=== PATIENT | female | born 1940 | race Caucasian/White ===

== ENCOUNTER 2016-09-13 13:35 | Outpatient (CLI) | payer MEDICARE, OTHER | END 2016-09-13 13:36 | disposition home or self-care (01) | DX: M85.88 Other specified disorders of bone density and structure, other site (principal); Z78.0 Asymptomatic menopausal state ==

== ENCOUNTER 2016-09-13 13:35 | Outpatient (CLI) | payer MEDICARE, OTHER | END 2016-09-13 13:36 | disposition home or self-care (01) | DX: Z12.31 Encounter for screening mammogram for malignant neoplasm of breast (principal); Z85.3 Personal history of malignant neoplasm of breast ==

== ENCOUNTER 2016-09-24 16:46 | Outpatient (CLI) | payer MEDICARE, OTHER | END 2016-09-24 16:47 | disposition home or self-care (01) | DX: K80.20 Calculus of gallbladder without cholecystitis without obstruction (principal); K31.4 Gastric diverticulum ==

== ENCOUNTER 2017-09-14 11:14 | Outpatient (CLI) | payer MEDICARE, OTHER ==
--- NOTE | 2017-09-15 18:13 | Mammography Report ---
DIGITAL SCREENING MAMMOGRAM: 09/14/2017 CLINICAL INDICATION: A 77-year-old with family history of breast cancer, history of benign biopsies for screening. COMPARISON: 09/2016, 09/2015, 07/2014, 07/2013, 06/2012, 04/2011, 04/2010. TECHNIQUE: Routine CC and MLO projections were obtained of the breasts. FINDINGS: The breasts again demonstrate heterogeneously dense fibroglandular parenchyma bilaterally. Post-biopsy changes are stable. Coarse and punctate, typically benign calcifications are present. No suspicious masses, clustered microcalcifications, or regions of architectural distortion are identified. IMPRESSION: BENIGN FINDINGS. RECOMMENDATION: Routine annual screening unless otherwise clinically indicated. BIRADS category: 2, benign findings. STANDARD QUALIFYING STATEMENTS 1. This examination was reviewed with the aid of Computed-Aided Detection (CAD). 2. A negative or benign imaging report should not delay biopsy if clinically suspicious findings are present. Consider surgical consultation if warranted. More than 5% of cancers are not identified by imaging. 3. Dense breasts may obscure an underlying neoplasm. TD: 09/15/2017 18:12
== END 2017-09-14 11:15 | disposition home or self-care (01) ==
LOC: DI 11:14
PROVIDERS: ATTEND Physician Assistant
DX: Z12.31 Encounter for screening mammogram for malignant neoplasm of breast (principal); Z80.3 Family history of malignant neoplasm of breast
CPT/HCPCS: 77067

== ENCOUNTER 2018-09-22 13:13 | Outpatient (CLI) | payer MEDICARE, OTHER ==
--- NOTE | 2018-09-25 09:24 | Mammography Report ---
Reason: ENCOUNTER FOR SCREENING MAMMOGRAM FOR MALIGNANT NE Procedure Date: 09/22/2018 Accession Number: [id number] / [id number] Procedure: MELISSA - Screening Mammo w/Viktor CPT Code: FULL RESULT: EXAM: Screening Mammo w/Viktor DATE: 09/22/2018 2:39 PM CLINICAL HISTORY: Screening encounter. Family history of breast cancer in the mother around the age of 55. History of benign breast biopsies. TECHNIQUE: Bilateral CC and MLO views were obtained. A left laterally exaggerated CC view was obtained. COMPARISON: 09/14/2017 through 07/30/2014. FINDINGS: The breasts demonstrate heterogeneously dense fibroglandular parenchyma bilaterally. There are coarse typically benign calcifications. Postbiopsy changes are stable. The right MLO view and the left cc view are technically insufficient and need to be repeated. No suspicious masses, clustered microcalcifications, or regions of architectural distortion are identified. IMPRESSION: Incomplete examination RECOMMENDATION: Technical recall for repeat right MLO and left CC views. BIRADS CATEGORY 0: Incomplete examination STANDARD QUALIFYING STATEMENTS: 1. This examination was not reviewed with the aid of Computer-Aided Detection (CAD). 2. A negative or benign imaging report should not delay biopsy if clinically suspicious findings are present. Consider surgical consultation if warrented. More than 5% of cancers are not identified by imaging. 3. Dense breasts may obscure an underlying neoplasm. 4. This examination was reviewed with the aid of 3D breast imaging (tomosynthesis).
== END 2018-09-22 13:14 | disposition home or self-care (01) ==
LOC: DI 13:13
PROVIDERS: ATTEND Physician Assistant
DX: Z12.31 Encounter for screening mammogram for malignant neoplasm of breast (principal); Z80.3 Family history of malignant neoplasm of breast; R92.2 Inconclusive mammogram
CPT/HCPCS: 77063; 77067

== ENCOUNTER 2018-09-22 13:19 | Outpatient (CLI) | payer MEDICARE, OTHER ==
--- NOTE | 2018-09-25 08:42 | DEXA Report ---
Reason: ENCOUNTER FOR SCREENING FOR OSTEOPOROSIS Procedure Date: 09/22/2018 Accession Number: [id number] / [id number] Procedure: DEX - Dexa Spine and/or Hip CPT Code: FULL RESULT: EXAM: Dexa Spine and/or Hip DATE: 09/22/2018 2:18 PM CLINICAL HISTORY: ENCOUNTER FOR SCREENING FOR OSTEOPOROSIS TECHNIQUE: Dual energy x-ray absorptiometry (DXA) was performed on a [employer] System. Regions measured are the AP Spine, femoral neck, and if needed forearm. COMPARISON: 09/13/2016. In accordance with the International Society for Clinical Densitometry (ISCD) guidelines, data from previous exams may be reanalyzed using current recommendations and techniques. This is done to allow a more accurate basis for comparison with the current study. FINDINGS: The data for the lumbar spine is as follows: BMD (g/cm/cm) T-SCORE Z-SCORE REGION L1 1.074 -0.5 1.2 L2 1.107 -0.8 0.9 L3 1.200 0.0 1.6 L4 1.258 0.5 2.1 TOTAL 1.160 -0.2 1.5 NOTE: All evaluable vertebrae are used for classification The data for the hip is as follows: BMD (g/cm/cm) T-SCORE Z-SCORE REGION Neck 0.697 -2.5 -0.5 TOTAL 0.776 -1.8 -0.1 NOTE: The femoral neck or total proximal femur, whichever is lowest, is used for classification. DXA RESULTS SUMMARY: Spine SCAN DATE AGE BMD CHANGE VS CHANGE VS PREVIOUS PREVIOUS % 09[age]22/[age] 1[age]189 0.040* 3.5* 09/13/2016 [age] 1[age]149 * Denotes significant change at the 95% confidence level. Denotes dissimilar scan types or analysis methods. DXA RESULTS SUMMARY: Hip SCAN DATE AGE BMD CHANGE VS CHANGE VS PREVIOUS PREVIOUS % 09[age]22/2018 [age] 0.776 -0.002 -0.3 09/13/2016 [age] 0.778 * Denotes significant change at the 95% confidence level. Denotes dissimilar scan types or analysis methods. IMPRESSION: THE WHO CLASSIFICATION BASED ON THE INTERNATIONAL REFERENCE STANDARD IS OSTEOPENIA. THE FRACTURE RISK IS INCREASED. RECOMMENDATION: Patients with diagnosis of osteoporosis or osteopenia should have regular bone mineral density assessment. For those eligible for Medicare, routine testing is allowed once every 2 years. Testing frequency can be increased for patients who have rapidly progressing disease or for those who are receiving medical therapy to restore bone mass. COMMENT: World Health Organization (WHO) definitions for osteoporosis and osteopenia: NORMAL BMD: T-score at -1.0 or higher, fracture risk is low OSTEOPENIA BMD: T-score between -1.0 and -2.5, fracture risk is increased. OSTEOPOROSIS BMD: T-score at -2.5 or lower, fracture risk is high. National Osteoporosis Foundation recommends: 1. Obtain adequate dietary calcium (at least 1200 mg per day) and vitamin D (400-800 international units per day). 2. Participate, as appropriate, in regular weightbearing and muscle-strengthening exercise. 3. Avoid tobacco use and reduce alcohol and caffeine intake. 4. For more detailed information see the website at www.NOF.org.
== END 2018-09-22 13:20 | disposition home or self-care (01) ==
LOC: DI 13:19
PROVIDERS: ATTEND Physician Assistant
DX: Z13.820 Encounter for screening for osteoporosis (principal); M85.88 Other specified disorders of bone density and structure, other site; Z78.0 Asymptomatic menopausal state
CPT/HCPCS: 77080

== ENCOUNTER 2018-10-16 12:29 | Outpatient (CLI) | payer MEDICARE, OTHER | END 2018-10-16 12:30 | disposition home or self-care (01) | LOC: DI 12:29 | PROVIDERS: ATTEND Physician Assistant | DX: R92.8 Other abnormal and inconclusive findings on diagnostic imaging of breast (principal) | CPT/HCPCS: 77063; 77067 ==

== ENCOUNTER 2018-10-16 12:30 | Outpatient (CLI) | payer MEDICARE, OTHER | END 2018-10-16 12:31 | disposition home or self-care (01) | LOC: DI 12:30 | PROVIDERS: ATTEND Physician Assistant | DX: R00.8 Other abnormalities of heart beat (principal); I34.0 Nonrheumatic mitral (valve) insufficiency; I27.20 Pulmonary hypertension, unspecified | CPT/HCPCS: 93306 ==

== ENCOUNTER 2019-06-07 11:12 | Outpatient (CLI) | payer MEDICARE, OTHER ==
--- NOTE | 2019-06-08 09:03 | XRAY Report ---
Reason: BILATERAL HIP PAIN Procedure Date: 06/07/2019 Accession Number: [id number] / [id number] Procedure: XRS - Hips 2V BILAT CPT Code: Final Report FULL RESULT: EXAM: BILATERAL HIP RADIOGRAPHY 3 VIEWS EXAM DATE: 06/07/2019. CLINICAL HISTORY: Bilat. Hip pain. COMPARISON: Abdomen and pelvis CT done 09/24/2016. TECHNIQUE: AP view of the pelvis and frog-leg view of the right and left hip FINDINGS: Bones: Normal. No fractures or bone lesion. Joints: The hips and the sacroiliac joints are normal. Narrowing and spurring of the pubic symphysis. Marked disk narrowing as well as fights at L4-L5, moderate disk narrowing at L3-L4. Soft Tissues: Normal. No soft tissue swelling. IMPRESSION: Normal examination of the hips. Degenerative changes of the pubic symphysis Advanced L4-L5 and mild-moderate L3-L4 degenerative disk disease and spondylosis. No change from 09/24/2016. RADIA
== END 2019-06-07 11:13 | disposition home or self-care (01) ==
LOC: DI.S 11:12
PROVIDERS: ATTEND Physician Assistant
DX: M25.551 Pain in right hip (principal); M25.552 Pain in left hip; M51.36 Other intervertebral disc degeneration, lumbar region; M47.816 Spondylosis without myelopathy or radiculopathy, lumbar region
CPT/HCPCS: 73521

== ENCOUNTER 2019-07-03 10:52 | Outpatient (CLI) | payer MEDICARE, OTHER ==
--- NOTE | 2019-07-04 09:28 | XRAY Report ---
Reason: INFLAMMATORY SPONDYLOPATHY, LUMBAR REGION Procedure Date: 07/03/2019 Accession Number: [id number] / [id number] Procedure: XRS - Lumbar Spine 2 View CPT Code: Final Report FULL RESULT: EXAM: LUMBOSACRAL SPINE RADIOGRAPHY EXAM DATE: 07/03/2019 11:08 AM. CLINICAL HISTORY: Chronic low back pain. COMPARISONS: HIP BILAT 06/07/2019 ABDOMEN/PELVIS W/O 09/24/2016. TECHNIQUE: 3 views. FINDINGS: Alignment: No scoliosis. Grade 1 anterior listhesis of L2 on L3, stable since 2017. Bones: Five uot-cjc-tuyzxpw lumbar vertebral bodies are present. Diminutive ribs affiliated with the lowest thoracic vertebral bearing body. No fractures or bone lesions. Disks/Facet: Multilevel degenerative disk and facet disease noted, maximal between L4-L5. Sacroiliac Joints: Unremarkable. Soft Tissues: Incidental gallstone measuring 12 mm. Few pelvic phleboliths. Calcifications affiliated with the aorta. IMPRESSION: 1. Degenerative changes in the lumbar spine, maximal at L4-L5. 2. No fracture or focus of bony destruction. Reference additional comments above. RADIA
== END 2019-07-03 10:53 | disposition home or self-care (01) ==
LOC: DI.S 10:52
PROVIDERS: ATTEND Physician Assistant
DX: M51.36 Other intervertebral disc degeneration, lumbar region (principal); M47.816 Spondylosis without myelopathy or radiculopathy, lumbar region; M43.16 Spondylolisthesis, lumbar region
CPT/HCPCS: 72100

== ENCOUNTER 2020-02-07 10:15 | Outpatient (CLI) | payer MEDICARE, OTHER ==
--- NOTE | 2020-02-08 09:14 | Mammography Report ---
BILATERAL DIGITAL SCREENING MAMMOGRAM 3D/2D: 02/07/2020 CLINICAL: Routine screening. Comparison is made to exams dated: 10/16/2018 mammogram, 09/22/2018 mammogram, 09/14/2017 mammogram, an d 09/13/2016 mammogram - [facility]. The tissue of both breasts is heterogeneously dense. This may lower the sensitivity of mammography. There are benign calcifications in both breasts. No significant masses, calcifications, or other findings are seen in either breast. There has been no significant interval change. IMPRESSION: There is no mammographic evidence of malignancy. A 1 year screening mammogram is recommended. This exam was interpreted at Station ID: [id number]. NOTE: For mammograms, a report in lay terms will be sent to the patient. Approximately 15% of breast malignancies will not be visualized mammographically. In the management of a palpable breast mass, a negative mammogram must not discourage biopsy of a clinically suspicious lesion. Electronically Signed By: Alexis Macias M.D. aty/masood:02/07/2020 17:49:52 ACR BI-RADS Category 2: Benign Finding(s) 3342F PARENCHYMAL PATTERN: (D) - The breast(s) demonstrate(s) heterogeneously dense fibroglandular parenchy ma. BI-RADS CATEGORY: (2) - 2 RECOMMENDATION: (ANNUAL) - Recommend routine annual screening mammography. [id number] 1 year screening LATERALITY: (B)
== END 2020-02-07 10:16 | disposition home or self-care (01) ==
LOC: DI 10:15
PROVIDERS: ATTEND Registered Nurse
DX: Z12.31 Encounter for screening mammogram for malignant neoplasm of breast (principal)
CPT/HCPCS: 77063; 77067

== ENCOUNTER 2021-04-27 10:03 | Outpatient (CLI) | payer MEDICARE, OTHER ==
--- NOTE | 2021-04-27 15:49 | DEXA Report ---
PROCEDURE: Dexa Spine and/or Hip INDICATIONS: OSTEOPOROSIS TECHNIQUE: Dual energy x-ray absorptiometry (DXA) was performed on a [employer] System. Regions measur ed are the AP Spine, femoral neck, and if needed forearm. COMPARISON: 09/22/2018 FINDINGS: Lumbar Spine: Bone Mineral Density 1.169 g/cm/cm,T score 0.0, normal Left Hip: Bone Mineral Density 0.779 g/cm/cm,T score -1.8, osteopenia Left Femoral Neck: Bone Mineral Density 0.688 g/cm/cm, T score -2.5, osteoporosis (T score greater or equal to -1.0: NORMAL) (T score from -1.1 to -2.4: OSTEOPENIA) (T score less than or equal to -2.5 to: OSTEOPOROSIS) Impression: Osteoporosis. Bone mineral density has decreased 0.3% in the interval since prior exam ob tained 09/22/2018. Patients with diagnosis of osteoporosis or osteopenia should have regular bone mineral density assess ment. For those eligible for Medicare, routine testing is allowed once every 2 years. Testing frequ ency can be increased for patients who have rapidly progressing disease or for those who are receivin g medical therapy to restore bone mass. Reviewed by: Nathalie Snow MD, PhD on 04/27/2021 3:48 PM PDT Approved by: Nathalie Snow MD, PhD on 04/27/2021 3:48 PM PDT Station ID: [id number]
== END 2021-04-27 10:04 | disposition home or self-care (01) ==
LOC: DI 10:03
PROVIDERS: ATTEND Nurse Practitioner Family
DX: M81.0 Age-related osteoporosis without current pathological fracture (principal)

== ENCOUNTER 2021-04-27 10:04 | Outpatient (CLI) | payer MEDICARE, OTHER ==
--- NOTE | 2021-04-28 08:51 | Mammography Report ---
BILATERAL DIGITAL SCREENING MAMMOGRAM 3D/2D: 04/27/2021 CLINICAL: Routine screening. Family history of breast cancer. Comparison is made to exams dated: 02/07/2020 mammogram, 10/16/2018 mammogram, 09/22/2018 mammogram, 09/01 mammogram, 09/13/2016 mammogram, and 09/02/2015 mammogram - [facility]. The ti ssue of both breasts is heterogeneously dense. This may lower the sensitivity of mammography. There are benign calcifications in both breasts. No significant masses, calcifications, or other findings are seen in either breast. There has been no significant interval change. IMPRESSION: BENIGN There is no mammographic evidence of malignancy. A 1 year screening mammogram is recommended. This exam was interpreted at Station ID: [id number]. NOTE: For mammograms, a report in lay terms will be sent to the patient. Approximately 15% of breast malignancies will not be visualized mammographically. In the management of a palpable breast mass, a negative mammogram must not discourage biopsy of a clinically suspicious lesion. Electronically Signed By: Gorge Barnett M.D. ddp/penrad:04/27/2021 12:03:14 ACR BI-RADS Category 2: Benign Finding(s) 3342F PARENCHYMAL PATTERN: (D) - The breast(s) demonstrate(s) heterogeneously dense fibroglandular parcarrie valentino. BI-RADS CATEGORY: (2) - 2 RECOMMENDATION: (ANNUAL) - Recommend routine annual screening mammography. [id number] 1 year screening LATERALITY: (B)
== END 2021-04-27 10:05 | disposition home or self-care (01) ==
LOC: DI 10:04
PROVIDERS: ATTEND Nurse Practitioner Family
DX: Z12.31 Encounter for screening mammogram for malignant neoplasm of breast (principal)

== ENCOUNTER 2022-04-25 18:53 | Emergency (ER) | payer MEDICARE, OTHER ==
[2022-04-25 19:22] LABS: BASOPHILS % (AUTO) 0.4 %; EOSINOPHILS # (AUTO) 0.1 10^3/uL (0.0-0.7); HCT - HEMATOCRIT 38.6 % (37.0-47.0); HGB - HEMOGLOBIN 13.4 g/dL (12.0-16.0); LYMPHOCYTES # (AUTO) 2.3 10^3/uL (1.5-3.5); LYMPHOCYTES % (AUTO) 34.7 %; MEAN CORPUSCULAR HEMOGLOBIN 33.2 pg (27.0-31.0); MEAN CORPUSCULAR HGB CONC 34.7 g/dL (32.0-36.0); MEAN CORPUSCULAR VOLUME 95.5 fL (81.0-99.0); MEAN PLATELET VOLUME 9.7 fL (7.9-10.8); MONOCYTES # (AUTO) 0.7 10^3/uL (0.0-1.0); MONOCYTES % (AUTO) 10.6 %; NEUTROPHILS # (AUTO) 3.6 10^3/uL (1.5-6.6); NEUTROPHILS % (AUTO) 53.2 %; PLT - PLATELET COUNT 216 10^3/uL (130-450); RED BLOOD COUNT 4.04 10^6/uL (4.20-5.40); WHITE BLOOD COUNT 6.7 x10^3/uL (4.8-10.8)
[2022-04-25] MEDS ORDERED: METOPROLOL 5 MG/5 ML VIAL IVP STA (19:22)
--- NOTE | 2022-04-25 19:23 | ED Physician Documentation ---
PD HPI CHEST PAIN - Stated complaint Stated Complaint: IRREGULAR HR - Chief complaint Chief Complaint: Cardiac - History obtained from History obtained from: Patient - Additional information Additional information: 82-year-old woman with history of SVT in the past but always fleeting presents with an abnormal feeling in her heart starting at 6 PM today. She actually had it for a few hours the other night as well. If feelings like her heart is beating out of her chest. It is not painful, no shortness of breath or fatigue. She has a history of hypertension on atenolol, and ARB, and Lasix. Review of Systems Ten Systems: 10 systems reviewed and negative Constitutional: denies: Fever, Chills, Fatigue Cardiac: denies: Chest pain / pressure Respiratory: denies: Dyspnea, Cough PD PAST MEDICAL HISTORY - Allergies Allergies/Adverse Reactions: Allergies Allergy/AdvReac Type Severity Reaction Status Date / Time No Known Drug Allergies Allergy Verified 04/25/22 19:25 PD ED PE NORMAL - Vitals Vital signs reviewed: Yes - General General: Alert and oriented X 3, No acute distress - HEENT HEENT: PERRL, EOMI - Neck Neck: Supple, no meningeal sign, No bony TTP - Cardiac Cardiac: Other (Rapid and irregular without murmur) - Respiratory Respiratory: No respiratory distress, Clear bilaterally - Abdomen Abdomen: Soft, Non tender - Back Back: No CVA TTP, No spinal TTP - Derm Derm: Normal color, Warm and dry, No rash - Extremities Extremities: No edema, No calf tenderness / cord - Neuro Neuro: Alert and oriented X 3, Normal speech Results - Vitals Vitals: Vital Signs - 24 hr 04/25/22 04/25/22 04/25/22 19:08 19:11 19:41 Temperature 36.9 C 36.9 C Heart Rate 140 H 140 H 67 Respiratory 16 16 12 Rate Blood Pressure 157/120 H 157/120 H 160/71 H O2 Saturation 97 97 97 Oxygen O2 Source Room air - EKG (time done) 1906 Rate: Rate (enter#) (125) Rhythm: Atrial flutter, Atrial fibrillation Intervals: Prolonged QT, RBBB Ischemia: Other (Rate related lateral ST depression). No: ST elevation c/w ischemia 1926 Rate: Rate (enter#) (68) Rhythm: NSR, LAE [place]: Normal, LAD Intervals: Normal HI QRS: Normal Ischemia: Normal ST segments - Labs Labs: Laboratory Tests 04/25/22 04/25/22 04/25/22 19:15 19:15 19:15 WBC 6.7 RBC 4.04 L Hgb 13.4 Hct 38.6 MCV 95.5 MCH 33.2 H MCHC 34.7 RDW 12.0 Plt Count 216 MPV 9.7 Neut # (Auto) 3.6 Lymph # (Auto) 2.3 [place] # (Auto) 0.7 Eos # (Auto) 0.1 Baso # (Auto) 0.0 Absolute Nucleated RBC 0.00 Nucleated RBC % 0.0 Sodium 135 Potassium 3.7 Chloride 100 L Carbon Dioxide 24 Anion Gap 11.0 BUN 17 Creatinine 0.7 Estimated GFR (MDRD) 80 L Glucose 118 H Calcium 9.4 Magnesium 2.3 Total Bilirubin 0.8 AST 21 ALT 19 Alkaline Phosphatase 80 Total Protein 6.9 Albumin 3.6 Globulin 3.3 Albumin/Globulin Ratio 1.1 Lipase 33 TSH 1.85 PD MEDICAL DECISION MAKING - ED course ED course: 82-year-old woman presents with her second episode of symptomatic atrial fibrillation in 4 days. I had ordered metoprolol for rate control initially but she converted prior to it being administered here. 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 She was given 20 mill equivalents of potassium for a low normal potassium of 3.7. No symptoms to suggest ischemic heart disease. Departure - Departure Disposition: 01 Home, Self Care Clinical Impression: Atrial fibrillation Qualifiers: Atrial fibrillation type: paroxysmal Qualified Code(s): I48.0 - Paroxysmal atrial fibrillation Condition: Good Record reviewed to determine appropriate education?: Yes Instructions: ED Paroxysmal Atrial Flutter Comments: Gail, you were seen tonight for an episode of atrial fibrillation, your second in 4 days it sounds like. You converted out of it without specific therapy here although we were prepared to rate control you. We have discussed starting anticoagulation but you have requested to defer that to your deodorizer operator which is not inappropriate. That said your stroke risk is fairly high with a [id number] VASc score of 6 giving you a stroke risk of 9.7 %/year. You should at least continue your baby aspirin until following up with Dr. Jeffers. Follow-up with him, next billable appointment. Take the copy of both the pre and post EKGs with you. Also note that your labs were unremarkable with a TSH of 1.85, normal chemistries although your potassium was 3.7 which is low normal so you received a potassium supplement here. If he develops recurrent atrial fibrillation at home you can take an extra half dose of your atenolol, but if that does not improve your symptoms within half an hour please return for reevaluation.
[2022-04-25 19:37] LABS: ALBUMIN 3.6 g/dL (3.2-5.5); ALBUMIN/GLOBULIN RATIO 1.1 (1.0-2.2); BILIRUBIN,TOTAL 0.8 mg/dL (0.2-1.0); CALCIUM 9.4 mg/dL (8.5-10.3); CREATININE 0.7 mg/dL (0.4-1.0); MAGNESIUM 2.3 mg/dL (1.7-2.8); POTASSIUM 3.7 mmol/L (3.5-5.0); TOTAL PROTEIN 6.9 g/dL (6.7-8.2)
[2022-04-25 19:42] VITALS: BP 160/71
[2022-04-25] MEDS ORDERED: POTASSIUM CHLORIDE 20 MEQ TABLET PO STA (20:03)
== END 2022-04-25 20:38 | disposition home or self-care (01) ==
LOC: ED 18:53
DX: I48.0 Paroxysmal atrial fibrillation (principal); E87.6 Hypokalemia
CPT/HCPCS: 36415; 80053; 83690; 83735; 84443; 85025; 93005; 99283; 99284; A9270

== ENCOUNTER 2022-04-28 13:25 | Outpatient (CLI) | payer MEDICARE, OTHER ==
--- NOTE | 2022-04-29 09:54 | Mammography Report ---
BILATERAL DIGITAL SCREENING MAMMOGRAM 3D/2D: 04/28/2022 CLINICAL: Routine screening. Comparison is made to exams dated: 04/27/2021 mammogram, 02/07/2020 mammogram, 10/16/2018 mammogram, 09/02 mammogram, and 09/14/2017 mammogram - [facility]. Both breasts are heterogeneously dense, which may obscure small masses (category c / 51-75% glandular tissue). There is a possible developing asymmetry in the left breast anterior depth inferior region seen on th e mediolateral oblique view only. No other significant masses, calcifications, or other findings are seen in either breast. IMPRESSION: INCOMPLETE: NEEDS ADDITIONAL IMAGING EVALUATION The possible developing asymmetry in the left breast is indeterminate. Additional views with possible ultrasound are recommended. Based on the Tyrer Cuzick model (a risk assessment model) the patients lifetime risk is 2.2% and her 10 year risk is 0.0%. According to the ACR, ACS, and NCCN guidelines, an annual breast MRI exam major g with mammogram is recommended if the patients lifetime risk is 20% or greater. This exam was interpreted at Station ID: [id number]. NOTE: For mammograms, a report in lay terms will be sent to the patient. Approximately 15% of breast malignancies will not be visualized mammographically. In the management of a palpable breast mass, a negative mammogram must not discourage biopsy of a clinically suspicious lesion. Electronically Signed By: Tan Marquez M.D. slc/:04/28/2022 21:31:32 ACR BI-RADS Category 0: Incomplete 3340F PARENCHYMAL PATTERN: (D) - The breast(s) demonstrate(s) heterogeneously dense fibroglandular parjenyy chicho. BI-RADS CATEGORY: (0) - 0 Mammo and US [id number] Immediate follow-up LATERALITY: (B)
== END 2022-04-28 13:26 | disposition home or self-care (01) ==
LOC: DI 13:25
PROVIDERS: ATTEND Nurse Practitioner Family
DX: Z12.31 Encounter for screening mammogram for malignant neoplasm of breast (principal); R92.8 Other abnormal and inconclusive findings on diagnostic imaging of breast

== ENCOUNTER 2022-05-11 12:34 | Outpatient (CLI) | payer MEDICARE, OTHER ==
--- NOTE | 2022-05-12 09:27 | Ultrasound Report ---
LIMITED ULTRASOUND OF LEFT BREAST: 05/11/2022 CLINICAL: Patient returns today to evaluate a focal asymmetry in the left breast. No prior exams were available for comparison. Color flow ultrasound of the left breast 6 o'clock region was performed. Wagner scale images of the r eal-time examination were reviewed. No significant abnormalities were seen sonographically in the left breast. IMPRESSION: NEGATIVE There is no sonographic evidence of malignancy. There is no abnormality seen in the left breast to correspond with the mammography finding which like ly represents normal fibroglandular tissue. A 1 year screening mammogram is recommended. Findings and recommendations were conveyed to the patient during today's evaluation. This exam was interpreted at Station ID: [id number]. Electronically Signed By: Alexis Macias M.D. aty/:05/11/2022 13:30:34 Ultrasound BI-RADS: 1 Negative BI-RADS CATEGORY: (1) - 1 RECOMMENDATION: (ANNUAL) - Recommend routine annual screening mammography. [id number] 1 year screening LATERALITY: (B)
--- NOTE | 2022-05-12 09:27 | Mammography Report ---
UNILATERAL LEFT DIGITAL DIAGNOSTIC MAMMOGRAM 3D/2D: 05/11/2022 CLINICAL: Patient returns today to evaluate an asymmetry in the left breast. Comparison is made to exams dated: 04/28/2022 mammogram, 04/27/2021 mammogram, 02/07/2020 mammogram, 09/29 mammogram, and 09/22/2018 mammogram - [facility]. The left breast is heterogeneously dense, which may obscure small masses (category c / 51-75% glandu lar tissue). The previously described possible developing asymmetry in the left breast anterior depth inferior reg ion seen on the mediolateral oblique view only is not confirmed in today's additional views. It appe ars less prominent and decreased in size. No other significant masses or calcifications are seen in the breast. IMPRESSION: INCOMPLETE: NEEDS ADDITIONAL IMAGING EVALUATION The possible developing asymmetry in the left breast resembles fibroglandular tissue and is indetermi kerry. An ultrasound is recommended for further evaluation and is scheduled to immediately follow this examination. Based on the Tyrer Cuzick model (a risk assessment model) the patients lifetime risk is 3.2% and her 10 year risk is 0.0%. According to the ACR, ACS, and NCCN guidelines, an annual breast MRI exam major g with mammogram is recommended if the patients lifetime risk is 20% or greater. This exam was interpreted at Station ID: [id number]. NOTE: For mammograms, a report in lay terms will be sent to the patient. Approximately 15% of breast malignancies will not be visualized mammographically. In the management of a palpable breast mass, a negative mammogram must not discourage biopsy of a clinically suspicious lesion. Electronically Signed By: Alexis Macias M.D. aty/:05/11/2022 13:29:32 ACR BI-RADS Category 0: Incomplete 3340F PARENCHYMAL PATTERN: (D) - The breast(s) demonstrate(s) heterogeneously dense fibroglandular wiley valentino. BI-RADS CATEGORY: (0) - 0 Ultrasound [id number] Immediate follow-up LATERALITY: (L)
== END 2022-05-11 12:35 | disposition home or self-care (01) ==
LOC: DI 12:34
PROVIDERS: ATTEND Nurse Practitioner Family
DX: R92.8 Other abnormal and inconclusive findings on diagnostic imaging of breast (principal)

== ENCOUNTER 2022-05-19 09:18 | Outpatient (CLI) | payer MEDICARE, OTHER | END 2022-05-19 09:19 | disposition home or self-care (01) | LOC: DI 09:18 | PROVIDERS: ATTEND Internal Medicine | DX: I48.91 Unspecified atrial fibrillation (principal); I47.1 Supraventricular tachycardia; R00.1 Bradycardia, unspecified; I07.1 Rheumatic tricuspid insufficiency; I87.8 Other specified disorders of veins | CPT/HCPCS: 93306 ==

== ENCOUNTER 2023-12-20 14:32 | Outpatient (CLI) | payer MEDICARE, OTHER ==
--- NOTE | 2023-12-20 17:49 | DEXA Report ---
PROCEDURE: Dexa Spine and/or Hip INDICATIONS: POST MENOPAUSAL TECHNIQUE: Dual energy x-ray absorptiometry (DXA) was performed on a [employer] System. Regions measur ed are the AP Spine, femoral neck, and if needed forearm. COMPARISON: 04/27/2021 FINDINGS: Lumbar Spine: Bone Mineral Density: 1.2 g/cm/cm,T score: 0.4. Previously 0 Left Femoral Neck: Bone Mineral Density: 0.68 g/cm/cm, T score: -2.5, previously -2.5. Left Hip: Bone Mineral Density: 0.74 g/cm/cm,T score: -2.1. Previously -1.8 (T score greater or equal to -1.0: NORMAL) (T score from -1.1 to -2.4: OSTEOPENIA) (T score less than or equal to -2.5 to: OSTEOPOROSIS) Impression: By WHO criteria, this patient has osteoporosis. Fracture risk is increased. T-scores are similar to prior. Patients with diagnosis of osteoporosis or osteopenia should have regular bone mineral density assess ment. For those eligible for Medicare, routine testing is allowed once every 2 years. Testing frequ ency can be increased for patients who have rapidly progressing disease or for those who are receivin g medical therapy to restore bone mass. Reviewed by: Teddy Coy MD on 12/20/2023 5:48 PM PDT Approved by: Teddy Coy MD on 12/20/2023 5:48 PM PDT Station ID: [id number]
== END 2023-12-20 14:33 | disposition home or self-care (01) ==
LOC: DI 14:32
PROVIDERS: ATTEND Internal Medicine
DX: M81.0 Age-related osteoporosis without current pathological fracture (principal); Z78.0 Asymptomatic menopausal state

== ENCOUNTER 2024-02-21 12:53 | Outpatient (CLI) | payer MEDICARE, OTHER ==
--- NOTE | 2024-02-22 01:27 | MRI Report ---
PROCEDURE: Cervical Spine WO INDICATIONS: PARASTHESIA TECHNIQUE: Multiplanar multisequential MRI of the cervical spine was obtained without contrast. COMPARISON: None. FINDINGS: Alignment and Curvature: There is normal bony alignment. Bone Marrow: Marrow demonstrates normal overall signal. Spinal Cord: Visualized spinal cord has normal size and signal. No cerebellar tonsillar herniation. Paraspinal Soft Tissues: No paravertebral masses. Prevertebral soft tissues are normal in thickness . C2-C3: Normal in appearance. C3-C4: Hypertrophic uncovertebral joints. Severe right and mild left foraminal stenosis. no central stenosis. C4-C5: Posterior disc osteophyte complex asymmetric to the left. Severe left and mild right foramina l stenosis. Moderate central stenosis. C5-C6: Posterior disc osteophyte complex asymmetric to the left results in moderate to central steno sis. Moderate left and no right foraminal stenosis C6-C7: Disc space narrowing posterior disc osteophyte complex. Mild central stenosis. Hypertrophic a rthropathy. Moderate left and mild right foraminal stenosis. C7-T1: Disc spaces preserved. Mild arthropathy. Moderate right and mild left foraminal stenosis IMPRESSION: Multilevel degenerative disc disease and arthropathy results in varying degrees of central and forami nal stenosis including arthropathy results in severe foraminal stenosis C3-4 and C4-5 Reviewed by: Santosh Villarreal MD on 02/22/2024 12:25 AM ARPAN Approved by: Santosh Villarreal MD on 02/22/2024 12:25 AM ARPAN Station ID: [id number]
== END 2024-02-21 12:54 | disposition home or self-care (01) ==
LOC: DI 12:53
PROVIDERS: ATTEND Internal Medicine
DX: M47.812 Spondylosis without myelopathy or radiculopathy, cervical region (principal); M50.30 Other cervical disc degeneration, unspecified cervical region; M48.02 Spinal stenosis, cervical region